=== PATIENT | male | born 1970 | race African-American/Black ===

== ENCOUNTER 2019-02-04 22:54 | Emergency (ER) | payer BC ==
[~2019-02-04] VITALS: Ht 177.8 cm; Wt 81.7 kg
[~2019-02-04 22:54] MED LIST: KEPPRA 500 MG500 M1 PO; NOHOMEMEDICATIONS; ZOFRAN ODT4 MG PO
[2019-02-04 23:35] LABS: ABSOLUTE NEUTROPHILS 4.3 thou/uL (1.4-8.2); BASOPHILS 0.9 % (0.0-2.0); EOSINOPHILS 0.1 % (0.0-3.0); HEMATOCRIT 47.4 % (42.0-52.0); HEMOGLOBIN 16.6 gm/dL (14.0-18.0); LYMPHOCYTES 10.6 % (24.0-44.0); MCH 33.7 pg (26.0-34.0); MCHC 34.9 g/dL (28.0-37.0); MCV 96.6 fL (80.0-100.0); MONOCYTES 8.4 % (1.0-8.0); PLATELET COUNT 173 thou/uL (150-400); RBC 4.91 mil/uL (4.50-6.00); WBC 5.3 thou/uL (4.0-11.0)
[2019-02-04 23:36] LABS: URINE BILIRUBIN NEGATIVE (Negative); URINE BLOOD TRACE (Negative); URINE CLARITY CLEAR; URINE COLOR YELLOW; URINE GLUCOSE-RANDOM* NEGATIVE (Negative); URINE KETONES 3+ (Negative); URINE LEUKOCYTES-REFLEX NEGATIVE (Negative); URINE NITRITE-REFLEX NEGATIVE (Negative); URINE PROTEIN (DIPSTICK) 1+ (Negative); URINE SPECIFIC GRAVITY >= 1.030 (1.005-1.035); URINE UROBILINOGEN 0.2 E.U./dl (0.2-1.0)
[2019-02-04 23:37] LABS: CALCIUM 9.4 mg/dL (8.5-10.1); POTASSIUM 4.7 mmol/L (3.5-5.1)
[2019-02-04 23:40] LABS: URINE REDUCING SUBSTANCE 0 %
[2019-02-04 23:43] LABS: TOTAL BILIRUBIN 1.1 mg/dL (<0.1-1.0); TOTAL PROTEIN 8.3 g/dL (6.4-8.2)
[2019-02-04 23:52] LABS: HYALINE CASTS 0-3 Few /LPF (None Seen); MUCUS 0-3 Light strn/LPF (None Seen); SQUAMOUS 0-3 Few /LPF (0-3)
[2019-02-04 23:53] LABS: BACTERIA-REFLEX None Seen /HPF (None Seen); CRYSTALS None Seen /LPF (None Seen); TRANSITIONAL EPITHEL CELL 0-3 Few /LPF (None Seen); URINE RBC None Seen /HPF (0-2); URINE WBC-REFLEX None Seen /HPF (0-5)
[2019-02-05] MEDS ORDERED: PHENERGAN 25 MG25 M1 PO (02:08)
[2019-02-05] MEDS ORDERED: ZOFRAN ODT4 MG PO (02:08)
[2019-02-05 02:20] VITALS: BP 123/66
== END 2019-02-05 02:21 | disposition home or self-care (01) ==
LOC: ER 22:54
PROVIDERS: Emergency Medicine
DX: K52.9 Noninfective gastroenteritis and colitis, unspecified (principal); I10 Essential (primary) hypertension; F17.210 Nicotine dependence, cigarettes, uncomplicated

== ENCOUNTER → 2019-09-11 | Outpatient (CLI) | payer BC ==
[~2019-09-11] MED LIST changes: +PHENERGAN 25 MG25 M1 PO
== END ==
LOC: RAD 11:15
DX: J42 Unspecified chronic bronchitis (principal)

== ENCOUNTER 2020-07-04 12:48 | Inpatient (IN) | payer BC ==
[~2020-07-04] VITALS: Ht 177.8 cm; Wt 80.7 kg
[2020-07-04 13:06] VITALS: BP 127/67
[2020-07-04 13:28] LABS: HEMATOCRIT 51.1 % (42.0-52.0); HEMOGLOBIN 17.6 gm/dL (14.0-18.0); MCH 33.6 pg (26.0-34.0); MCHC 34.4 g/dL (28.0-37.0); MCV 97.8 fL (80.0-100.0); RBC 5.23 mil/uL (4.50-6.00); RDW 14.5 % (10.5-14.5); WBC 5.8 thou/uL (4.0-11.0)
[2020-07-04 13:40] LABS: ANION GAP 15 mmol/L (7-16); BUN 17 mg/dL (7-18); CALCIUM 9.7 mg/dL (8.5-10.1); CHLORIDE 95 mmol/L (98-107); CO2 25 mmol/L (21-32); CREATININE 1.3 mg/dL (0.7-1.3); GLUCOSE 164 mg/dL (74-106); POTASSIUM 3.8 mmol/L (3.5-5.1); SODIUM 135 mmol/L (136-145)
[2020-07-04 13:48] LABS: TROPONIN-I <0.06 ng/mL (<0.06)
[2020-07-04] MEDS ORDERED: VIMPAT200 MG PO (13:53)
[2020-07-04] MEDS ORDERED: CARVEDILOL12.5 MG PO (13:54)
[2020-07-04] MEDS ORDERED: KLOR-CON M2020 MEQ PO ×2 (13:55→13:56)
[2020-07-04] MEDS ORDERED: NEURONTIN 300M300 M2 PO (13:56)
[2020-07-04] MEDS ORDERED: AMOXICILLIN 50500 MG PO (13:57)
[2020-07-04] MEDS ORDERED: OMEPRAZOLE40 MG PO (13:58)
[2020-07-04] MEDS ORDERED: BIAXIN 500 MG500 M2 PO (13:58)
[2020-07-04 22:42] VITALS: BP 117/78
[2020-07-05] MEDS ORDERED: ZOFRAN4 MG DISSOLVE (00:14)
[2020-07-05] MEDS ORDERED: HYDROCHLOROTHIA25 M2 PO (00:15)
[2020-07-05 00:45] VITALS: BP 126/72
[2020-07-05 04:45] VITALS: BP 116/80
[2020-07-05 05:22] LABS: MCH 33.8 pg (26.0-34.0); MCHC 34.4 g/dL (28.0-37.0); MCV 98.1 fL (80.0-100.0); RBC 4.48 mil/uL (4.50-6.00); RDW 14.2 % (10.5-14.5); WBC 3.4 thou/uL (4.0-11.0)
[2020-07-05 05:24] LABS: HEMOGLOBIN 15.1 gm/dL (14.0-18.0)
[2020-07-05 05:28] LABS: CALCIUM 8.7 mg/dL (8.5-10.1)
[2020-07-05 05:39] LABS: POTASSIUM 2.9 mmol/L (3.5-5.1)
--- NOTE | 2020-07-05 07:34 | NUR ---
pt arrived on the floor around 5, pt is awake, alert and orientedx4, sr on the monitor, admission assessment completed and as charted, ciwa of 5-9, ativan given, denies nausea and vomiting, denies pain, remains on iv fluids, bs stable, meds given as per nov, denied having concerns, very cooperative, no issues noted, rested well, passed on report to day nurse
--- NOTE | 2020-07-05 07:41 | EKG ---
[facility] [place] [address] ELECTROCARDIOGRAM REPORT Name: KIAN SEO Room #: 215-P ADM IN M.R.#: [id number] Admission: 07/04/20 Attend Phys: Willie Canales MD Discharge: Date of : 72 Report #: [id number] THIS REPORT FOR: cc: Audra Nino MD, Nora P. MD Santiago, Patrick MD [facility] ~ THIS REPORT FOR: //name// [facility] ED Test Date: 2020-07-04 Test Time: 14:16:50 Pat Name: KIAN SEO Department: Room: 215 Gender: M Felt Hanger: : 1970 Requested By: Alfonso Dasilva Order Number: [id number] MD: Minor Degroot Measurements Intervals Benedict Rate: 84 P: 57 NC: 161 QRS: 50 QRSD: 85 T: 40 QT: 381 QTc: 451 Interpretive Statements Sinus rhythm ST elev, probable normal early repol pattern Baseline wander in lead(s) V6 No previous ECG available for comparison Electronically Signed On 07-05-2020 7:41:11 CDT by Minor Degroot [email or web address] <ELECTRONICALLY SIGNED> By: Minor Degroot MD, FACC 07/05/20 0741 141 141 Minor Degroot MD, [facility] /EPI
[2020-07-05 08:10] VITALS: BP 110/69
--- NOTE | 2020-07-05 15:31 | NUR ---
Patient admits with ETOH withdraw. Attempted to see patient but he does not arouse. Have placed numbers in dc instruction for alcohol assistance treatment programs. [facility] following.
--- NOTE | 2020-07-05 15:34 | NUR ---
Patient admits with alcohol withdraw. He has and health insurance. Attempted to sp with patient but he was sleeping very soundly. [facility] following.
[2020-07-05 17:20] VITALS: BP 120/77
--- NOTE | 2020-07-05 19:23 | NUR ---
ASSUMED CARE AT CHANGE OF SHIFT. ALERT, OZWA 7 TREATED WITH LORAZAPAM. UP WITH ASSIST. SEIZURE PRECATIONS IN PLACE. VOIDS PER URINAL. POTASSIUM WNL. TOLERATING DIET. CALL LIGHT IN REACH. FALL PRECAUTIONS IN PLACE.
[2020-07-05 20:18] VITALS: BP 128/76
[2020-07-06 04:03] LABS: HEMATOCRIT 42.3 % (42.0-52.0); HEMOGLOBIN 14.4 gm/dL (14.0-18.0); MCH 33.9 pg (26.0-34.0); MCV 99.7 fL (80.0-100.0); RBC 4.25 mil/uL (4.50-6.00); RDW 14.1 % (10.5-14.5); WBC 2.8 thou/uL (4.0-11.0)
[2020-07-06 04:16] LABS: CALCIUM 8.4 mg/dL (8.5-10.1); CREATININE 0.8 mg/dL (0.7-1.3); POTASSIUM 3.5 mmol/L (3.5-5.1)
[2020-07-06 05:00] VITALS: BP 128/83
--- NOTE | 2020-07-06 06:05 | NUR ---
assumed pt care at the change of shift, sr on the monitor, assessmensts as charted, vss, remains on ciwa protocol, score6-9, states feeling better, denies pain or sob, remains on iv fluids, no acute distress noted, will pass on report
[2020-07-06 08:35] VITALS: BP 120/68
[2020-07-06 12:02] VITALS: BP 132/72
[2020-07-06 15:40] VITALS: BP 130/81
--- NOTE | 2020-07-06 15:59 | NUR ---
PT ALERT AND ORIENTED. VSS. SCORE 2 ON CIWA. ON CIWA AND SEIZURES PRECAUTIONS. NO CONCERNS AT THIS TIME.
[2020-07-06 16:27] VITALS: BP 109/73
[2020-07-06 19:20] VITALS: BP 130/84
[2020-07-07 04:00] VITALS: BP 142/68
--- NOTE | 2020-07-07 07:43 | NUR ---
ASSUMED CARE OF PATIENT AT 1900; AOX4 WITH SEIZURE PRECAUTIONS IN PLACE; AMBULATES STEADY; CIWA SCORE 0; SR ON THE MONITOR; PLAN IS FOR POSSIBLE DISCHARGE TODAY.
[2020-07-07] MEDS ORDERED: VITAMIN B-1100 M2 PO (09:51)
[2020-07-07 10:30] VITALS: BP 142/68
--- NOTE | 2020-07-07 10:57 | NUR ---
ASSESSMENT CHARTED. PT ALERT AND ORIENTED. VSS. REPORT FEELING MUCH BETTER TODAY. CIWA SCORE A 0. SEEN BY DR. GALLOWAY. ORDERS GIVEN TO DISCHARGE PT TO HOME. DISCHARGE INSTRUCTIONS GIVEN TO PT PT VERBERLISED UBDERSTANDING. PT LEFT THE FACILITY ACCOMPANIED BY THE .
== END 2020-07-07 11:02 | disposition home or self-care (01) | DRG 897 ==
LOC: ER 12:48 → EROBS 14:42 → 2N 14:42
PROVIDERS: Emergency Medicine; ADMIT Hospitalist; ATTEND Hospitalist
DX: F10.239 Alcohol dependence with withdrawal, unspecified (principal); I10 Essential (primary) hypertension; G40.909 Epilepsy, unspecified, not intractable, without status epilepticus; F17.210 Nicotine dependence, cigarettes, uncomplicated; Z79.899 Other long term (current) drug therapy; Z79.2 Long term (current) use of antibiotics
CPT/HCPCS: 10081

== ENCOUNTER → 2021-06-18 | Outpatient (CLI) | payer BC ==
[~2021-06-18] MED LIST changes: +AMOXICILLIN 50500 MG PO; +BIAXIN 500 MG500 M2 PO; +CARVEDILOL12.5 MG PO; +HYDROCHLOROTHIA25 M2 PO; +KLOR-CON M2020 MEQ PO; +NEURONTIN 300M300 M2 PO; +OMEPRAZOLE40 MG PO; +VIMPAT200 MG PO; +VITAMIN B-1100 M2 PO; +ZOFRAN4 MG DISSOLVE
== END ==
LOC: RAD 10:59
PROVIDERS: ATTEND Family Medicine
DX: R06.00 Dyspnea, unspecified (principal)